=== PATIENT | male | born 1990 | race African-American/Black ===

== ENCOUNTER 2017-10-18 00:16 | Emergency (ER) | payer MEDICAID ==
[~2017-10-18] VITALS: Ht 177.8 cm; Wt 77.1 kg
[2017-10-18 00:53] VITALS: BP 130/80
[2017-10-18] MEDS ORDERED: cefTRIAXone SOD 1,000 MG VL IM ONE (01:00)
[2017-10-18] MEDS ORDERED: methylPREDNISolone SOD SUCC 125 MG/2 ML VL IM ONE (01:00)
== END 2017-10-18 04:03 | disposition home or self-care (01) ==
LOC: ER 00:16
DX: K04.7 Periapical abscess without sinus (principal); Z88.0 Allergy status to penicillin
CPT/HCPCS: 70486; 96372; 99284; J0696; J2930